=== PATIENT | male | born 1995 | race Caucasian/White ===

== ENCOUNTER 2019-09-22 15:19 | Emergency (ER) | payer SELFPAY ==
[~2019-09-22] VITALS: Ht 177.8 cm; Wt 68.0 kg
[2019-09-22 15:39] VITALS: BP 128/72
--- NOTE | 2019-09-22 15:55 | NUR ---
PT SEEN AND EXAMINED BY .
--- NOTE | 2019-09-22 16:08 | NUR ---
Patient discharged to home in stable condition. Written and verbal after care instructions given. Patient verbalizes understanding of instruction.
== END 2019-09-22 16:17 | disposition home or self-care (01) ==
LOC: ER 15:23
DX: F41.9 Anxiety disorder, unspecified (principal); Z76.0 Encounter for issue of repeat prescription; Z98.890 Other specified postprocedural states

== ENCOUNTER 2019-10-09 19:43 | Emergency (ER) | payer MEDICAID ==
[~2019-10-09] VITALS: Ht 180.3 cm; Wt 65.8 kg
[2019-10-09 19:47] VITALS: BP 141/77
--- NOTE | 2019-10-09 19:59 | NUR ---
BIBS TO ER BED 10. AAOX4. NOT IN RESP DISTRESS. AMBUALTORY. ANXIOUS. CAME IN FOR MEDICATION REFILL OF HIS ANXIETY MEDICATION. SOLITARIO HURTADO AT BEDSIDE FOR EVAL.
--- NOTE | 2019-10-09 20:16 | NUR ---
Patient discharged to home in stable condition. Written and verbal after care instructions given. Patient verbalizes understanding of instruction. Pt ambulatory with a steady gait
== END 2019-10-09 20:18 | disposition home or self-care (01) ==
LOC: ER 19:44
DX: F41.9 Anxiety disorder, unspecified (principal); Z76.0 Encounter for issue of repeat prescription; Z98.890 Other specified postprocedural states

== ENCOUNTER 2020-07-14 19:36 | Emergency (ER) | payer MEDICAID, OTHER ==
[~2020-07-14] VITALS: Ht 180.3 cm; Wt 65.8 kg
[2020-07-14 19:36] VITALS: BP 136/84
[2020-07-14] MEDS ORDERED: ONDANSETRON 4 MG TAB.RAPDIS SL ONE (20:00)
[2020-07-14] MEDS ORDERED: FAMOTIDINE (20 MG) 20 MG TABLET PO ONE (20:00)
[2020-07-14] MEDS ORDERED: ONDA4TAB5 PO (20:03)
[2020-07-14] MEDS ORDERED: ONDANSETRON 4 MG TAB.RAPDIS ONE (20:03)
[2020-07-14] MEDS ORDERED: FAMOTIDINE (20 MG) 20 MG TABLET ONE (20:03)
--- NOTE | 2020-07-14 20:08 | NUR ---
Patient discharged to home in stable condition. Written and verbal after care instructions given. Patient verbalizes understanding of instruction.
== END 2020-07-14 20:08 | disposition home or self-care (01) ==
LOC: ER 19:43
DX: R11.0 Nausea (principal); F41.9 Anxiety disorder, unspecified
CPT/HCPCS: Q0162